=== PATIENT | male | born 1995 | race Caucasian/White ===

== ENCOUNTER 2018-04-05 21:38 | Emergency (ER) | payer OTHER ==
[~2018-04-05] VITALS: Ht 177.8 cm; Wt 120.2 kg
[2018-04-05 22:44] LABS: ABSOLUTE BASOPHIL COUNT 0.1 /CUMM (0.0-0.2); ABSOLUTE EOSINOPHIL COUNT 0.1 /CUMM (0.0-0.7); ABSOLUTE GRANULOCYTE CT 7.3 /CUMM (1.4-6.5); ABSOLUTE LYMPH COUNT 2.1 /CUMM (1.2-3.4); ABSOLUTE MONOCYTE COUNT 0.7 /CUMM (0.10-0.60); BASOPHIL % 0.5 % (0.0-2.0); EOSINOPHIL % 1.3 % (0-5); GRANULOCYTE % 71.5 % (42.2-75.2); HEMATOCRIT 49.9 % (42-52); MEAN CORPUSCULAR HGB 30.4 PG (27.0-31.0); MEAN CORPUSCULAR HGB CONC 33.8 G/DL (33.0-37.0); MEAN CORPUSCULAR VOLUME 89.8 FL (80.0-94.0); MEAN PLATELET VOLUME 7.4 FL (7.4-10.4); PLATELET COUNT 264 /CUMM (130-400); RBC DISTRIBUTION WIDTH 12.6 % (11.5-14.5); RED BLOOD CELL CT 5.56 /CUMM (4.70-6.10); WHITE BLOOD CELL COUNT 10.3 /CUMM (4.8-10.8)
--- NOTE | 2018-04-06 00:34 | RADIOLOGY REPORT ---
EXAMINATION: CHEST 1 VIEW CLINICAL INFORMATION: Chest pain. COMPARISON: None. TECHNIQUE: An AP view of the chest is provided. FINDINGS: The cardiac silhouette is not enlarged. The mediastinal and hilar contours are unremarkable. There are neither pleural effusions nor pneumothoraces. There are no consolidations. The osseous structures are unremarkable. IMPRESSION: No evidence for acute disease.
--- NOTE | 2018-04-06 00:38 | ED CARDIAC/CP/PALPITATIONS ---
History of Present Illness General Chief Complaint: Chest Pain Stated Complaint: CP X30 MINS Source: patient Exam Limitations: no limitations Vital Signs & Intake/Output Vital Signs & Intake/Output Vital Signs Date Time Temp Pulse Resp B/P B/P Pulse O2 O2 Flow FiO2 Mean Ox Delivery Rate 04/06 0205 97.8 87 18 123/88 97 Room Air 04/06 0145 99 Room Air Allergies Coded Allergies: NO KNOWN ALLERGIES (02/10/13) Triage Note: RECEIVED 22 YO MALE C/O MID STERNAL CHEST PAIN INTERMITTENTLY X ONE HOUR WITH NAUSEA, DIZZINESS, LIGHTHEADENESS. PT REPORTS FAMILY HX OF M.I AT 40'S. Triage Nurses Notes Reviewed? yes Onset: Abrupt Duration: hour(s): (3), constant Timing: single episode today Location: central Radiation: no radiation Activities at Onset: none, rest Prior Chest Pain/Card Workup: no prior chest pain, no prior cardiac workup Nitro Today/Relief: no nitro taken today Aspirin Today: no aspirin today HPI: 22-year-old male with no past medical history presents for evaluation of chest pain. Patient states symptoms started several she will presentation and improved since starting. He is located in the center of his chest does not radiate described as tightness. Associated with nausea and lightheadedness. No shortness of breath the pain is improved significantly since starting. He the pain started while at rest. There are no alleviating or aggravating factors. He's never had this before. He does report he has a significant family history of CT in his uncle and grandfather in their 40s. (Lev Garzon) Past History Travel History Traveled to [place] past 21 day No Medical History Any Pertinent Medical History? see below for history Neurological: NONE EENT: NONE Cardiovascular: NONE Respiratory: NONE Gastrointestinal: NONE Hepatic: NONE Renal: NONE Musculoskeletal: NONE Psychiatric: anxiety Endocrine: NONE Blood Disorders: NONE Cancer(s): NONE Surgical History Surgical History: non-contributory Psychosocial History What is your primary language Upper Sorbian Tobacco Use: Never used Family History Hx Contributory? No (Lev Garzon) Review of Systems Review of Systems Constitutional: Reports: no symptoms. EENTM: Reports: no symptoms. Respiratory: Reports: no symptoms. Cardiovascular: Reports: see HPI, chest pain. GI: Reports: no symptoms. Genitourinary: Reports: no symptoms. Musculoskeletal: Reports: no symptoms. Skin: Reports: no symptoms. Neurological/Psychological: Reports: see HPI (lightheaded). Hematologic/Endocrine: Reports: no symptoms. Immunologic/Allergic: Reports: no symptoms. All Other Systems: Reviewed and Negative (Lev Garzon) Physical Exam Physical Exam General Appearance: well developed/nourished, no apparent distress, alert, awake Head: atraumatic, normal appearance Eyes: Bilateral: normal appearance, PERRL, EOMI. Ears, Nose, Throat: normal pharynx, normal ENT inspection, hearing grossly normal Neck: normal inspection, supple, full range of motion Respiratory: normal breath sounds, chest non-tender, no respiratory distress, lungs clear Cardiovascular: regular rate/rhythm, normal peripheral pulses Peripheral Pulses: 2+ radial (R), 2+ radial (L) Gastrointestinal: soft, non-tender Back: normal inspection, normal range of motion Extremities: normal inspection, normal range of motion, no edema Neurologic/Psych: no motor/sensory deficits, awake, alert, oriented x 3, normal gait Skin: intact, normal color, warm/dry Lymphatic: no anterior cervical heidy Core Measures ACS in differential dx? No CVA/TIA Diagnosis No Sepsis Present: No Sepsis Focused Exam Completed? No (Lev Garzon) Progress Differential Diagnosis: AMI, aortic dissection, CHF/pulm edema, costochondritis, musculoskeletal pain, pancreatitis, pericarditis, pneumonia, pneumothorax, PSVT, pulmonary embolism, PUD/GERD, PVCs/PACs, rib fracture, unstable angina, V-fib/V- Tach, WPW syndrome Plan of Care: Orders Procedure Date/time Status TROPONIN LEVEL 04/06 0100 Complete EKG 04/06 0100 Active Laboratory Tests 04/06/18 0114: Troponin I < 0.01 Patient seen and evaluated. He is here with chest pain that started a few hours ago. The pain is improved since restarting. He does report significant family history uncle and grandfather having MIs in their 40s. Patient does report associated anxiety. He states he has had anxiety attacks in the past that felt similar but not lasted as long as been intense. Patient is medicated with oral Ativan labs chest x-ray EKG is ordered. Blood work does not show any acute changes troponin is negative chest x-ray is clear. No DVT/PE risk factors. D-dimer is negative. Patient reports feeling significantly better after Ativan. He is now chest pain-free. Due to patient's significant family history of check a repeat EKG and troponin. EKG troponin negative and unchanged. Patient continues to be a somatic. He was instructed to follow-up with his primary care doctor discussed precautions patient agrees Diagnostic Imaging: Viewed by Me: Radiology Read. Discussed w/RAD: Radiology Read. CXR Impression: PATIENT: VIRAJ SMITH PRESENT AGE: 22 PATIENT ACCOUNT NO: [id number] : 93 LOCATION: [facility] ORDERING PHYSICIAN: Lev HEDRICK SERVICE DATE: 04/05/18 EXAM TYPE: RAD - XRY- PORTABLE CHEST XRAY EXAMINATION: CHEST 1 VIEW CLINICAL INFORMATION: Chest pain. COMPARISON: None. TECHNIQUE: An AP view of the chest is provided. FINDINGS: The cardiac silhouette is not enlarged. The mediastinal and hilar contours are unremarkable. There are neither pleural effusions nor pneumothoraces. There are no consolidations. The osseous structures are unremarkable. IMPRESSION: No evidence for acute disease. DICTATED BY: Twan Rosas MD DATE/TIME DICTATED:29 Initial ED EKG: no ST T wave changes, sinus tach rate 107 Repeat EKG: unchanged Rhythm Strip: normal sinus rhythm (Lev Garzon) Departure Departure Disposition: HOME OR SELF CARE Condition: Stable Clinical Impression Primary Impression: Chest pain Qualifiers: Chest pain type: unspecified Qualified Code: R07.9 - Chest pain, unspecified Referrals: Westley Caba MD (PCP/Family) Additional Instructions: follow up with your [facility] care doctor to reivew all results of todays visit. moniotr your symptoms return with any concerns. Departure Forms: Customer Survey General Discharge Information (Lev Garzon) PA/DRUG SAFETY ASSISTANT Co-Sign Statement Statement: ED Attending supervision documentation- [X] I saw and evaluated the patient. I have also reviewed all the pertinent lab results and diagnostic results. I agree with the findings and the plan of care as documented in the PA's/DRUG SAFETY ASSISTANT's documentation. [X] I have reviewed the ED Record and agree with the PA's/DRUG SAFETY ASSISTANT's documentation. [] Additions or exceptions (if any) to the PAs/DRUG SAFETY ASSISTANT's note and plan are summarized below: [] (Krishna BONILLA,Lionel.) Critical Care Note Critical Care Note Critical Care Time: non-applicable (Vazquez HEDRICK,Lev)
[2018-04-06 02:05] VITALS: BP 123/88
== END 2018-04-06 02:07 ==
LOC: ERH 21:38
PROVIDERS: Emergency Medicine
DX: R07.89 Other chest pain (principal)
CPT/HCPCS: 71045; 93005; 93010